=== PATIENT | female | born 1990 | race Caucasian/White ===

== ENCOUNTER → 2016-11-15 | Outpatient (CLI) | payer OTHER | LOC: WI 07:42 | PROVIDERS: ATTEND Nurse Practitioner | DX: R10.11 Right upper quadrant pain (principal) | CPT/HCPCS: 76705 ==

== ENCOUNTER → 2017-03-16 | Outpatient (CLI) | payer OTHER ==
--- NOTE | 2017-03-16 15:18 | RADIOLOGY REPORT (SQ) ---
EXAM DESCRIPTION: U/S NON-OB PELVIS TV W/O DOP COMPLETED DATE/TIME: 03/16/2017 3:01 pm REASON FOR STUDY: LLQ ABDOMINAL PAIN R10.32 LEFT LOWER QUADRANT PAIN COMPARISON: None. TECHNIQUE: Dynamic and static grayscale images acquired of the pelvis via transvaginal approach and recorded on PACS. Additional selected color Doppler and spectral images recorded. LIMITATIONS: None. FINDINGS: UTERUS: Contour normal. No mass. Uterus is 8.7 x 5.6 x 5.3 cm in size ENDOMETRIAL STRIPE: No focal or generalized thickening. No masses. Endometrial stripe 10 mm in thick ness. IUD is not identified. CERVIX: Closed, 2.5 cm in length. RIGHT OVARY: No abnormal masses. 3.6 x 4.4 x 2.5 cm in size RIGHT OVARY DOPPLER: Normal arterial vascular flow without evidence for torsion. LEFT OVARY: No abnormal masses. 5 x 3.7 x 1.8 cm in size LEFT OVARY DOPPLER: Normal arterial vascular flow without evidence for torsion. FREE FLUID: Small amount of nonspecific posterior cul-de-sac free fluid OTHER: No other significant finding. IMPRESSION: Trace free pelvic fluid, nonspecific. No IUD seen in the endometrial canal Otherwise unremarkable study TECHNICAL DOCUMENTATION: JOB ID: [id number] [employer]- All Rights Reserved
== END ==
LOC: RAD 14:06
PROVIDERS: ATTEND Physician Assistant
DX: R10.32 Left lower quadrant pain (principal)
CPT/HCPCS: 76830